=== PATIENT | female | born 1960 | race Caucasian/White ===

== ENCOUNTER 2017-02-13 15:20 | Emergency (ER) | payer BC ==
[2017-02-13 15:27] VITALS: BP 134/86
--- NOTE | 2017-02-13 16:21 | RAD ---
INDICATION: Cough. Short of breath COMPARISON: None TECHNIQUE: PA and lateral dual-energy views were obtained. FINDINGS: Bones/Soft Tissues: There are no acute bony findings. There is a prominent scoliotic deformity Cardiomediastinal: The cardiomediastinal silhouette is normal. Lungs: There are no infiltrates. Pleura: There are no pleural effusions. Other: None IMPRESSION: NO ACTIVE DISEASE. SCOLIOSIS.
--- NOTE | 2017-02-13 17:36 | UC ---
Renata Vogel Gabriel, scribed for aSurav Little MD on 02/13/17 at 1553 . Respiratory Complaint HPI - HPI Summary HPI Summary: This patient is a 56 year old F presenting to [facility] with a chief complaint of congestion for 2 weeks. Symptoms aggravated by exertion. Patient reports BALDWIN, general malaise, wheezing. Patient denies CP, edema and ABD pain. - History of Current Complaint Chief Complaint: UCRespiratory Stated Complaint: COUGH,CONGESTION,COLD Time Seen by Provider: 02/13/17 15:45 Hx Obtained From: Patient Hx Last Menstrual Period: 3 weeks ago Onset/Duration: Lasting Weeks - 2, Still Present Timing: Constant Severity Initially: Mild Pain Intensity: 0 Pain Scale Used: 0-10 Numeric Alleviating Factors: Nothing Associated Signs And Symptoms: Positive: Negative - CP, edema and ABD pain., Wheezing - Allergies/Home Medications Allergies/Adverse Reactions: Allergies Allergy/AdvReac Type Severity Reaction Status Date / Time No Known Allergies Allergy Verified 02/13/17 15:28 PMH/Surg Hx/FS Hx/Imm Hx Previously Healthy: Yes - Surgical History Surgical History: None - Family History Known Family History: Positive: Cardiac Disease, Diabetes - Social History Alcohol Use: Occasionally Substance Use Type: None Smoking Status (MU): Never Smoked Tobacco Review of Systems Constitutional: Other - general malaise Respiratory: Other - BALDWIN, wheezing Cardiovascular: Negative - CP Genitourinary: Negative - ABD pain Musculoskeletal: Negative - Edema All Other Systems Reviewed And Are Negative: Yes Physical Exam Triage Information Reviewed: Yes Appearance: Ill-Appearing Vital Signs: Initial Vital Signs Temp 96.4 F 02/13/17 15:25 Pulse 72 02/13/17 15:25 Resp 18 02/13/17 15:25 BP 134/86 02/13/17 15:25 Pulse Ox 100 02/13/17 15:25 Vital Signs Reviewed: Yes Eye Exam: Normal - EOMI, PERRL ENT: Positive: Other - Rhinorrhea Neck exam: Normal Neck: Positive: Supple, Nontender Respiratory Exam: Normal - CTA Respiratory: Positive: Normal breath sounds Cardiovascular Exam: Normal Cardiovascular: Positive: RRR, No Murmur Abdominal Exam: Normal Abdomen Description: Positive: Nontender, Soft Bowel Sounds: Positive: Present Musculoskeletal Exam: Normal - No calf tenderness Musculoskeletal: Positive: Strength Intact, ROM Intact Neurological Exam: Normal - sensory/motor intact, A&O x3 Psychological Exam: Normal - affect/mood appropriate Skin Exam: Normal - warm, color reflects adequate perfusion, dry UC Diagnostic Evaluation - Laboratory O2 Sat by Pulse Oximetry: 100 - Radiology Radiology Interpretation Completed By: Radiologist - CXR-NO ACTIVE DISEASE. SCOLIOSIS. Respiratory Course/Dx - Course Course Of Treatment: PATIENT DECLINED STEROID RX. F/U PMD; GET RECHECK IF WORSE. - Differential Dx/Diagnosis Provider Diagnoses: BRONCHITIS Discharge - Discharge Plan Condition: Stable Disposition: HOME Prescriptions: Azithromyxin CK (NF) [Z-Ck (Zithromax) 250 mg tabs #6] 2 tab PO .TODAY, THEN 1 DAILY #6 tab Patient Education Materials: Acute Bronchitis (ED) Referrals: Shmuel Baker MD [Primary Care Provider] - Additional Instructions: FOLLOW UP WITH YOUR DOCTOR. GET RECHECKED FOR ANY WORSENING OF YOUR CONDITION OR QUESTIONS OR CONCERNS. The documentation as recorded by the Renata velasquez Gabriel accurately reflects the service I personally performed and the decisions made by me, Saurav Little MD.
== END 2017-02-13 16:30 | disposition home or self-care (01) ==
LOC: UCEAST 15:20
DX: J40 Bronchitis, not specified as acute or chronic (principal)
CPT/HCPCS: 71020; 99212; G0463